=== PATIENT | male | born 1975 | race Caucasian/White ===

== ENCOUNTER 2019-05-21 02:03 | Inpatient (IN) | payer BC ==
[2019-05-21] VITALS (17 sets, daily range): BP systolic 97–142; BP diastolic 56–91
[~2019-05-21] VITALS: Ht 180.3 cm; Wt 100.0 kg
[2019-05-21] MEDS ORDERED: morphine 4 MG/ML inj SYRINge IV ONE (03:40)
[2019-05-21] MEDS ORDERED: ondansetron/PF 4mg/2ml inj IV ONE (03:40)
[2019-05-21] MEDS ORDERED: metroNIDAZOLE-Flagyl 500mg/NS 100 ML IV STA (03:47)
[2019-05-21] MEDS ORDERED: NAPR220T67 PO (03:47)
[2019-05-21] MEDS ORDERED: morphine 2 MG/ML inj. syringe IV PRN (04:25)
[2019-05-21] MEDS ORDERED: potassium Cl 20 mEq SR tablet PO PRN ×2 (04:25)
[2019-05-21] MEDS ORDERED: magnesium 2GM in 50ml NS 50 ML IV PRN (04:25)
[2019-05-21] MEDS ORDERED: magnesium 4gm in 100ml NS 100 ML IV PRN (04:25)
[2019-05-21] MEDS ORDERED: magnesium Cl slow-release 64mg tablet PO PRN (04:25)
[2019-05-21] MEDS ORDERED: ondansetron/PF 4mg/2ml inj IV PRN (04:25)
[2019-05-21] MEDS ORDERED: potassium CL 10mEq/100ml bag 100 ML IV PRN ×2 (04:25)
[2019-05-21 05:17] LABS: PARTIAL THROMBOPLASTIN TIME 30 SECONDS (22-32)
[2019-05-21] MEDS: normal saline 1000ml 1,000 ML IV SCH ×3 (05:18→16:32)
--- NOTE | 2019-05-21 05:32 | NUR ---
Received report from JOSUE [place]. Awaiting patient arrival to the floor.
--- NOTE | 2019-05-21 05:58 | NUR ---
Patient arrived to the floor via wheelchair, placed in room 340A. Patient is awake and alert on room air, in no apparent distress. Call light and items of frequent use within reach, Will continue to monitor.
--- NOTE | 2019-05-21 06:18 | NUR ---
Problems reprioritized. Patient report given, questions answered & plan of care reviewed with JOSUE Mckenna.
--- NOTE | 2019-05-21 06:30 | NUR ---
Patient in room [facility]. I have received report from Kezia SALAS and had the opportunity to ask questions and assume patient care.
[2019-05-21] MEDS: morphine 2 MG/ML inj. syringe IV PRN ×4 (07:53→23:02)
[2019-05-21] MEDS: metroNIDAZOLE-Flagyl 500mg/NS 100 ML IV SCH ×2 (07:54→16:29)
[2019-05-21] MEDS: K and/or MAG REPLACEMENT MC SCH ×2 (08:00→20:00)
[2019-05-21 09:04] LABS: BASOPHILS # (AUTO) 0.1 X10'3 (0-0.2); BASOPHILS % (AUTO) 0.9 % (0-1); EOSINOPHILS # (AUTO) 0.2 X10'3 (0-0.9); EOSINOPHILS % (AUTO) 1.5 % (0-6); HEMATOCRIT 46.5 % (42.0-52.0); HEMOGLOBIN 15.6 g/dl (14.0-17.9); LYMPHOCYTES # (AUTO) 1.4 X10'3 (1.1-4.8); LYMPHOCYTES % (AUTO) 13.1 % (21-51); MEAN CORPUSCULAR HEMOGLOBIN 29.6 PG (27.0-31.0); MEAN CORPUSCULAR HGB CONC 33.4 g/dL (33.0-36.5); MEAN CORPUSCULAR VOLUME 88.7 FL (78-98); MEAN PLATELET VOLUME 8.3 FL (7.4-10.4); MONOCYTES # (AUTO) 1.1 X10'3 (0-0.9); MONOCYTES % (AUTO) 10.3 % (2-12); NEUTROPHILS # (AUTO) 7.8 X10'3 (1.8-7.7); NEUTROPHILS % (AUTO) 74.2 % (42-75); PLATELET COUNT 252 X10'3 (140-440); RED BLOOD COUNT 5.25 X10'6 (4.70-6.10); RED CELL DISTRIBUTION WIDTH 15.1 % (11.5-14.5); WHITE BLOOD COUNT 10.5 X10'3 (4.5-11.0)
[2019-05-21 09:07] LABS: ALBUMIN 3.4 G/DL (3.4-5.0); ALBUMIN/GLOBULIN RATIO 0.8 (1.1-1.5); ANION GAP 5 (8-16); ASPARTATE AMINO TRANSFERASE 37 U/L (10-37); BLOOD UREA NITROGEN 13 MG/DL (7-18); BUN/CREATININE RATIO 15.1 (5.4-32.0); CALCIUM 8.6 MG/DL (8.5-10.1); CHLORIDE 106 MMOL/L (99-107); CREATININE 0.86 MG/DL (0.60-1.10); GLUCOSE 96 MG/DL (70-104); POTASSIUM 4.2 MMOL/L (3.5-5.1); SODIUM 139 MMOL/L (135-145); TOTAL CARBON DIOXIDE 28.1 MMOL/L (24-32); TOTAL PROTEIN 7.5 G/DL (6.4-8.2); eGFR > 90 ML/MIN
[2019-05-21 09:08] LABS: ALANINE AMINOTRANSFERASE 37 U/L (12-78); ALKALINE PHOSPHATASE 99 IU/L (46-116)
[2019-05-21] MEDS: piperacillin/tazo 4.5gm/100ml 100 ML IV SCH ×2 (10:23→20:19)
[2019-05-21] MEDS ORDERED: midazolam 2 mg/2 ml injection ONE (10:27)
[2019-05-21] MEDS ORDERED: fentaNYL/PF 50MCG/1 ML 2ML syringe ONE ×2 (10:27→11:24)
[2019-05-21] MEDS ORDERED: nicotine 21mg patch - 24 hr TD ONE (13:55)
--- NOTE | 2019-05-21 15:45 | NUR ---
Malnutrition consult: Pt seen at bedside reports UBW of 226 lb with 6 lb wt loss in 4 days r/t poor PO intake secondary to pain. Pt now endorsing a good appetite. Pt with no visible fat or muscle wasting, no documented decrease in muscle strength, and no edema. Pt currently does not meet criteria for malnutrition. Pt reports he is lactose intolerant and states he doesn't like brussel sprouts, d/w dietary. RD contact information provided. Will continue to follow. Addendum: 05/21/19 at [address] Amended: Links added.
--- NOTE | 2019-05-21 18:53 | NUR ---
Problems reprioritized. Patient report given, questions answered & plan of care reviewed with SRIDEVI SALAS.
--- NOTE | 2019-05-21 20:27 | NUR ---
Patient in room [facility]. I have received report from JOSUE Mckenna and had the opportunity to ask questions and assume patient care. Addendum: 05/21/19 at 2027 by Shirin Cheung RN Amended: Links added.
--- NOTE | 2019-05-21 21:15 | NUR ---
Problems reprioritized. Patient report given, questions answered & plan of care reviewed with JOSUE Medina. Addendum: 05/21/19 at 2115 by Shirin Cheung RN Amended: Links added.
--- NOTE | 2019-05-21 21:15 | NUR ---
Patient in room [facility]. I have received report from Shirin SALAS and had the opportunity to ask questions and assume patient care.
--- NOTE | 2019-05-21 21:30 | NUR ---
I have reviewed assessment and agree with findings. Patient does have a JEWELS drain to R medial abdomen with minimal serosanguineous drainage at this time.
[2019-05-22] VITALS: BP 104/68
[2019-05-22] MEDS: metroNIDAZOLE-Flagyl 500mg/NS 100 ML IV SCH ×2 (00:50→07:44)
[2019-05-22] MEDS: normal saline 1000ml 1,000 ML IV SCH ×2 (03:01→15:33)
[2019-05-22 05:11] LABS: BASOPHILS # (AUTO) 0.1 X10'3 (0-0.2); EOSINOPHILS # (AUTO) 0.3 X10'3 (0-0.9); EOSINOPHILS % (AUTO) 3.5 % (0-6); HEMATOCRIT 40.8 % (42.0-52.0); HEMOGLOBIN 13.8 g/dl (14.0-17.9); LYMPHOCYTES # (AUTO) 1.8 X10'3 (1.1-4.8); LYMPHOCYTES % (AUTO) 19.6 % (21-51); MEAN CORPUSCULAR HEMOGLOBIN 29.8 PG (27.0-31.0); MEAN CORPUSCULAR HGB CONC 33.7 g/dL (33.0-36.5); MEAN CORPUSCULAR VOLUME 88.2 FL (78-98); MEAN PLATELET VOLUME 8.5 FL (7.4-10.4); MONOCYTES # (AUTO) 0.8 X10'3 (0-0.9); MONOCYTES % (AUTO) 8.9 % (2-12); NEUTROPHILS # (AUTO) 6.1 X10'3 (1.8-7.7); PLATELET COUNT 230 X10'3 (140-440); RED BLOOD COUNT 4.62 X10'6 (4.70-6.10); WHITE BLOOD COUNT 9.2 X10'3 (4.5-11.0)
[2019-05-22 05:23] LABS: ALANINE AMINOTRANSFERASE 42 U/L (12-78); ALBUMIN 2.8 G/DL (3.4-5.0); ALBUMIN/GLOBULIN RATIO 0.8 (1.1-1.5); ALKALINE PHOSPHATASE 110 IU/L (46-116); ANION GAP 4 (8-16); ASPARTATE AMINO TRANSFERASE 40 U/L (10-37); BILIRUBIN,TOTAL 0.5 MG/DL (0.1-1.0); BLOOD UREA NITROGEN 10 MG/DL (7-18); BUN/CREATININE RATIO 12.5 (5.4-32.0); CALCIUM 8.3 MG/DL (8.5-10.1); CHLORIDE 107 MMOL/L (99-107); GLUCOSE 98 MG/DL (70-104); MAGNESIUM 1.9 MG/DL (1.5-2.4); POTASSIUM 4.1 MMOL/L (3.5-5.1); SODIUM 140 MMOL/L (135-145); TOTAL CARBON DIOXIDE 28.7 MMOL/L (24-32); TOTAL PROTEIN 6.3 G/DL (6.4-8.2); eGFR > 90 ML/MIN
--- NOTE | 2019-05-22 05:30 | NUR ---
Problems reprioritized. Patient report given, questions answered & plan of care reviewed with Randa SALAS.
--- NOTE | 2019-05-22 06:30 | NUR ---
Patient in room [facility]. I have received report from JOSUE Medina and had the opportunity to ask questions and assume patient care.
[2019-05-22 06:57] VITALS: BP 111/69
[2019-05-22] MEDS: K and/or MAG REPLACEMENT MC SCH ×2 (07:18→20:00)
[2019-05-22] MEDS: piperacillin/tazo 4.5gm/100ml 100 ML IV SCH ×2 (07:44→19:41)
[2019-05-22] MEDS: morphine 2 MG/ML inj. syringe IV PRN ×3 (07:45→18:25)
[2019-05-22] MEDS: nicotine 21mg patch - 24 hr TD SCH (08:00)
--- NOTE | 2019-05-22 09:28 | NUR ---
Per Dr Reji green to flush patients JEWELS drain placed by IR with 10cc saline flush.
[2019-05-22 11:00] VITALS: BP 110/68
--- NOTE | 2019-05-22 16:55 | NUR ---
Patient JEWELS drain was flushed with 10 mL NS into the patient and then 8 mL into the tube for a total of 18 mL of NS to flush. Total output was 35 mL of fluid. That subtracted by what was flushed gives a total of 17 mL of actual output.
--- NOTE | 2019-05-22 18:26 | NUR ---
Problems reprioritized. Patient report given, questions answered & plan of care reviewed with Jessica Lopez RN.
--- NOTE | 2019-05-22 18:30 | NUR ---
Patient in room [facility]. I have received report from CASSIE SALAS and had the opportunity to ask questions and assume patient care.
[2019-05-22 20:00] VITALS: BP 136/85
[2019-05-22] MEDS: lactobacillus rhamnosus 10,000 MMU CELLS/CAPSULE PO SCH (20:09)
[2019-05-22] MEDS: HYDROcodone/acetaminophen 10/325mg tab PO PRN (20:09)
[2019-05-23] VITALS: BP 113/76
[2019-05-23] MEDS: normal saline 1000ml 1,000 ML IV SCH (02:09)
[2019-05-23 05:34] LABS: ALANINE AMINOTRANSFERASE 38 U/L (12-78); ALBUMIN 2.9 G/DL (3.4-5.0); ALBUMIN/GLOBULIN RATIO 0.8 (1.1-1.5); ALKALINE PHOSPHATASE 99 IU/L (46-116); ANION GAP 5 (8-16); ASPARTATE AMINO TRANSFERASE 29 U/L (10-37); BILIRUBIN,TOTAL 0.4 MG/DL (0.1-1.0); BLOOD UREA NITROGEN 8 MG/DL (7-18); BUN/CREATININE RATIO 10.3 (5.4-32.0); CALCIUM 8.2 MG/DL (8.5-10.1); CHLORIDE 108 MMOL/L (99-107); CREATININE 0.78 MG/DL (0.60-1.10); GLUCOSE 109 MG/DL (70-104); MAGNESIUM 1.9 MG/DL (1.5-2.4); POTASSIUM 3.9 MMOL/L (3.5-5.1); SODIUM 138 MMOL/L (135-145); TOTAL CARBON DIOXIDE 25.1 MMOL/L (24-32); TOTAL PROTEIN 6.5 G/DL (6.4-8.2); eGFR > 90 ML/MIN
[2019-05-23 05:43] LABS: BASOPHILS # (AUTO) 0.1 X10'3 (0-0.2); BASOPHILS % (AUTO) 0.9 % (0-1); EOSINOPHILS # (AUTO) 0.3 X10'3 (0-0.9); EOSINOPHILS % (AUTO) 2.5 % (0-6); HEMATOCRIT 41.3 % (42.0-52.0); LYMPHOCYTES # (AUTO) 1.3 X10'3 (1.1-4.8); LYMPHOCYTES % (AUTO) 12.7 % (21-51); MEAN CORPUSCULAR HGB CONC 33.9 g/dL (33.0-36.5); MEAN CORPUSCULAR VOLUME 88.5 FL (78-98); MEAN PLATELET VOLUME 8.5 FL (7.4-10.4); MONOCYTES # (AUTO) 0.8 X10'3 (0-0.9); MONOCYTES % (AUTO) 7.9 % (2-12); NEUTROPHILS # (AUTO) 8.1 X10'3 (1.8-7.7); PLATELET COUNT 235 X10'3 (140-440); RED BLOOD COUNT 4.67 X10'6 (4.70-6.10); RED CELL DISTRIBUTION WIDTH 14.8 % (11.5-14.5); WHITE BLOOD COUNT 10.6 X10'3 (4.5-11.0)
--- NOTE | 2019-05-23 06:30 | NUR ---
Problems reprioritized. Patient report given, questions answered & plan of care reviewed with MICHI SALAS.
[2019-05-23] MEDS: nicotine 21mg patch - 24 hr TD SCH (08:00)
[2019-05-23] MEDS: K and/or MAG REPLACEMENT MC SCH ×2 (08:00→19:21)
[2019-05-23] MEDS: piperacillin/tazo 4.5gm/100ml 100 ML IV SCH ×2 (09:26→19:27)
[2019-05-23] MEDS: lactobacillus rhamnosus 10,000 MMU CELLS/CAPSULE PO SCH ×2 (09:27→19:27)
[2019-05-23] MEDS: HYDROcodone/acetaminophen 10/325mg tab PO PRN ×2 (09:46→19:26)
[2019-05-23 11:35] VITALS: BP 135/84
--- NOTE | 2019-05-23 11:36 | NUR ---
Spoke with JYOTI BAEZ. This flush can be done by nursing but make sure to SLOWLY flush a small amount retrograde and withdraw/aspirate any fluid inserted. Flush most of the fluid TOWARD drain bulb. Will pass on in report to frantz SALAS. Addendum: 05/23/19 at 1142 by Rosey Alfaro RN Amended: Links added.
[2019-05-23 18:00] VITALS: BP 129/76
--- NOTE | 2019-05-23 18:56 | NUR ---
GAVE REPORT TO PRUDENCE JOSUE.
--- NOTE | 2019-05-23 19:04 | NUR ---
Patient in room [facility]. I have received report from MICHI SALAS and had the opportunity to ask questions and assume patient care.
[2019-05-23 23:58] VITALS: BP 118/69
[2019-05-24 05:12] LABS: BASOPHILS # (AUTO) 0.1 X10'3 (0-0.2); BASOPHILS % (AUTO) 0.6 % (0-1); EOSINOPHILS # (AUTO) 0.3 X10'3 (0-0.9); EOSINOPHILS % (AUTO) 3.6 % (0-6); HEMATOCRIT 41.6 % (42.0-52.0); HEMOGLOBIN 14.1 g/dl (14.0-17.9); LYMPHOCYTES # (AUTO) 2.2 X10'3 (1.1-4.8); LYMPHOCYTES % (AUTO) 24.6 % (21-51); MEAN CORPUSCULAR HEMOGLOBIN 29.6 PG (27.0-31.0); MEAN CORPUSCULAR HGB CONC 33.9 g/dL (33.0-36.5); MEAN CORPUSCULAR VOLUME 87.3 FL (78-98); MEAN PLATELET VOLUME 8.1 FL (7.4-10.4); MONOCYTES # (AUTO) 0.9 X10'3 (0-0.9); MONOCYTES % (AUTO) 9.7 % (2-12); NEUTROPHILS # (AUTO) 5.5 X10'3 (1.8-7.7); NEUTROPHILS % (AUTO) 61.5 % (42-75); PLATELET COUNT 272 X10'3 (140-440); RED BLOOD COUNT 4.77 X10'6 (4.70-6.10); RED CELL DISTRIBUTION WIDTH 14.6 % (11.5-14.5)
[2019-05-24 05:29] LABS: ALANINE AMINOTRANSFERASE 31 U/L (12-78); ALBUMIN 2.9 G/DL (3.4-5.0); ALBUMIN/GLOBULIN RATIO 0.8 (1.1-1.5); ALKALINE PHOSPHATASE 79 IU/L (46-116); ANION GAP 3 (8-16); ASPARTATE AMINO TRANSFERASE 14 U/L (10-37); BILIRUBIN,TOTAL 0.3 MG/DL (0.1-1.0); BLOOD UREA NITROGEN 8 MG/DL (7-18); BUN/CREATININE RATIO 8.6 (5.4-32.0); CALCIUM 8.3 MG/DL (8.5-10.1); CHLORIDE 107 MMOL/L (99-107); CREATININE 0.93 MG/DL (0.60-1.10); GLUCOSE 92 MG/DL (70-104); POTASSIUM 3.8 MMOL/L (3.5-5.1); SODIUM 140 MMOL/L (135-145); TOTAL CARBON DIOXIDE 30.4 MMOL/L (24-32); TOTAL PROTEIN 6.5 G/DL (6.4-8.2); eGFR 88 ML/MIN
--- NOTE | 2019-05-24 06:18 | NUR ---
Problems reprioritized. Patient report given, questions answered & plan of care reviewed with SHARMAINE SALAS.
--- NOTE | 2019-05-24 06:18 | NUR ---
Patient in room [facility]. I have received report from JOSUE Rawls and had the opportunity to ask questions and assume patient care.
[2019-05-24 07:14] VITALS: BP 110/66
[2019-05-24] MEDS: K and/or MAG REPLACEMENT MC SCH (08:00)
[2019-05-24] MEDS: piperacillin/tazo 4.5gm/100ml 100 ML IV SCH (08:37)
[2019-05-24] MEDS: lactobacillus rhamnosus 10,000 MMU CELLS/CAPSULE PO SCH (08:37)
[2019-05-24] MEDS: HYDROcodone/acetaminophen 10/325mg tab PO PRN (08:48)
[2019-05-24 11:00] VITALS: BP 129/70
[2019-05-24] MEDS ORDERED: METR-159 PO (11:11)
[2019-05-24] MEDS ORDERED: LEVO500T2 PO (11:11)
== END 2019-05-24 14:18 | disposition home or self-care (01) | DRG 392 ==
LOC: ER 02:05 → SUR 3N 04:24
PROVIDERS: ADMIT Internal Medicine; ATTEND Family Medicine
PROC: 0W9G30Z Drainage of Peritoneal Cavity with Drainage Device, Percutaneous Approach (ICD-10-PCS; principal; 2019-05-21)
DX: K57.80 Diverticulitis of intestine, part unspecified, with perforation and abscess without bleeding (principal); K52.9 Noninfective gastroenteritis and colitis, unspecified; F17.200 Nicotine dependence, unspecified, uncomplicated; K59.00 Constipation, unspecified
CPT/HCPCS: 36415; 49406; 80053; 83735; 85025; 85610; 85730; 87070; 87077; 87081; 87102; 87185; 96365; 96375; 99152; 99153; 99285; G0378; J2250; J2270; J2405; J2543; J3010; J3490; J7030

== ENCOUNTER 2019-07-03 09:30 | Inpatient (IN) | payer OTHER, BC ==
[2019-07-01 16:04] LABS: BASOPHILS # (AUTO) 0.1 X10'3 (0-0.2); BASOPHILS % (AUTO) 1.5 % (0-1); EOSINOPHILS # (AUTO) 0.3 X10'3 (0-0.9); EOSINOPHILS % (AUTO) 4.1 % (0-6); LYMPHOCYTES # (AUTO) 2.5 X10'3 (1.1-4.8); LYMPHOCYTES % (AUTO) 33.2 % (21-51); MEAN CORPUSCULAR HEMOGLOBIN 29.4 PG (27.0-31.0); MEAN CORPUSCULAR HGB CONC 33.8 g/dL (33.0-36.5); MEAN PLATELET VOLUME 8.5 FL (7.4-10.4); MONOCYTES # (AUTO) 0.7 X10'3 (0-0.9); MONOCYTES % (AUTO) 8.8 % (2-12); NEUTROPHILS # (AUTO) 3.9 X10'3 (1.8-7.7); NEUTROPHILS % (AUTO) 52.4 % (42-75); PRE OP HEMATOCRIT 47.1 % (42.0-52.0); PRE OP HEMOGLOBIN 15.9 g/dL (14.0-17.9); PRE OP PLATELET COUNT 228 X10'3 (140-440); RED BLOOD COUNT 5.42 X10'6 (4.70-6.10); RED CELL DISTRIBUTION WIDTH 15.8 % (11.5-14.5)
[2019-07-01 16:07] LABS: CLARITY,URINE CLEAR (Clear); COLOR,URINE YELLOW (Yellow); GLUCOSE, URINE NEGATIVE (Neg); KETONES,URINE NEGATIVE (Neg); LEUKOCYTE ESTERASE ,URINE NEGATIVE (Neg); NITRITES, URINE NEGATIVE (Neg); OCCULT BLOOD,URINE NEGATIVE (Neg); PH,URINE 6.5 (4.8-8.0); PROTEIN,URINE NEGATIVE (Neg); UROBILINOGEN,URINE 0.2 E.U/dL (0.2-1.0)
[2019-07-01 16:09] LABS: UA COLLECTION TYPE CLN CATCH MIDSTREAM
[2019-07-01 16:17] LABS: ALBUMIN/GLOBULIN RATIO 1.1 (1.1-1.5); ALKALINE PHOSPHATASE 72 IU/L (46-116); BLOOD UREA NITROGEN 12 MG/DL (7-18); BUN/CREATININE RATIO 14.3 (5.4-32.0); CALCIUM 8.7 MG/DL (8.5-10.1); CHLORIDE 107 MMOL/L (99-107); CREATININE 0.84 MG/DL (0.60-1.10); PRE OP ALT 70 U/L (30-65); PRE OP ANION GAP 7 (8-16); PRE OP AST 29 U/L (10-37); PRE OP BILIRUB, TOTAL 0.6 MG/DL (0.0-1.0); PRE OP GLUCOSE 106 MG/DL (70-104); PRE OP POTASSIUM 3.9 MMOL/L (3.4-5.1); PRE OP SODIUM 141 MMOL/L (135-145); TOTAL CARBON DIOXIDE 27.2 MMOL/L (24-32); TOTAL PROTEIN 7.7 G/DL (6.4-8.2); eGFR > 90 ML/MIN
[2019-07-03] VITALS (14 sets, daily range): BP systolic 100–158; BP diastolic 52–103
[~2019-07-03] VITALS: Ht 180.3 cm; Wt 99.8 kg
[~2019-07-03 09:30] MED LIST: NAPR220T67 PO; ceFOXitin 2 GM ADDvantage bag 100 ML IV ONE; famotidine 20mg tablet PO ONE; ringers solution, lacted 1,000 ML IV SCH
[2019-07-03] MEDS ORDERED: HYDROcodone/acetaminophen 10/325mg tab PO ONE (14:20)
[2019-07-03] MEDS ORDERED: BUPIVAcaine/PF 2.5 mg/ml (0.25%) 30ml vial ONE ×2 (14:56→14:58)
[2019-07-03] MEDS ORDERED: ceFAZolin 1000mg inj ONE ×3 (14:56→16:05)
[2019-07-03] MEDS ORDERED: iohexol 300 MG/1 ML 50ml polymer ONE (15:01)
[2019-07-03] MEDS ORDERED: fentaNYL /PF 50mcg/ml 5ml ampule ONE (15:08)
[2019-07-03] MEDS ORDERED: midazolam 2 mg/2 ml injection ONE (15:08)
[2019-07-03] MEDS ORDERED: sevoflurane 250ml liquid IH ONE (15:10)
[2019-07-03] MEDS ORDERED: dexamethasone sod phosphate 4mg/ml inj. ONE (15:52)
[2019-07-03] MEDS ORDERED: neostigmine methylsulfate 1 MG/ML 10ml vial ONE (15:52)
[2019-07-03] MEDS ORDERED: glycopyrrolate 0.2mg/ml inj ONE (15:52)
[2019-07-03] MEDS ORDERED: rocuronium 10mg/ml inj IV ONE (15:52)
[2019-07-03] MEDS ORDERED: propofol inj 20 ML IV ONE (15:52)
[2019-07-03] MEDS ORDERED: LIDOcaine 2% (20mg/ml) 5ml vial ONE (15:52)
[2019-07-03] MEDS ORDERED: ondansetron/PF 4mg/2ml inj ONE (15:52)
[2019-07-03] MEDS ORDERED: ringers solution, lacted 1,000 ML IV SCH (16:03)
[2019-07-03] MEDS ORDERED: ondansetron/PF 4mg/2ml inj IV PRN ×2 (16:05→17:35)
[2019-07-03] MEDS ORDERED: HYDROmorphone inj. 0.5 MG/0.5 ML DISP.SYRIN IV PRN ×2 (16:05)
[2019-07-03] MEDS ORDERED: meperidine/PF 25mg/ml syringe IV PRN ×2 (16:05)
[2019-07-03] MEDS ORDERED: meperidine/PF 50mg/ml syringe ONE (17:10)
[2019-07-03] MEDS ORDERED: fentaNYL/PF 50MCG/1 ML 2ML syringe ONE (17:26)
[2019-07-03] MEDS ORDERED: naloxone 0.4 mg/ml inj IV PRN (17:35)
[2019-07-03] MEDS ORDERED: CADD PCA waste documentation MC PRN (17:35)
--- NOTE | 2019-07-03 17:35 | NUR ---
Received from OR via BED , accompanied by Anesthesiologist DR CAMPUZANO and report given by Anesthesiolgist. PATIENT WAKING UP, DENIES PAIN, V/S WNL, NEUROVASCULAR CHECKS INTACT, 20G PIV LUE, SCD ON, BANDAIDS TO LAP SIGHTS AND PROVENA DRESSING TO ABDOMEN CDI. F/C DRAINING PINK CLEAR URINE AFTER STENT REMOVAL POST OP
[2019-07-03] MEDS: HYDROmorphone/NS 1 mg/ml CADD 50 ML IV SCH ×4 (18:03→23:00)
--- NOTE | 2019-07-03 18:20 | NUR ---
Patient in room [facility]. I have received report from JOSUE Mckeon and had the opportunity to ask questions and will assume patient care when pt comes up from OR
--- NOTE | 2019-07-03 18:20 | NUR ---
Patient brought up by OR on gurney. patient is alert and oriented, VSS
--- NOTE | 2019-07-03 18:25 | NUR ---
PATIENT [id number], DENIES PAIN, V/S WNL, NEUROVASCULAR CHECKS INTACT, 20G PIV LUE, SCD ON, BANDAIDS TO LAP SIGHTS AND PROVENA DRESSING TO ABDOMEN CDI. 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 PATIENT TAKEN TO 345B WITH ALL BELONGINGS AND HOOKED UP TO MONITORS IN ROOM AND REPORT GIVEN TO RN WHO HAS TAKEN OVER PATIENT CARE.
[2019-07-03] MEDS ORDERED: HYDROmorphone/NS 1 mg/ml CADD 50 ML IV SCH (19:00)
[2019-07-03] MEDS: naproxen sodium 220mg tablet PO SCH (20:11)
[2019-07-03] MEDS: potassium CL 20mEq in D5-1/2NS 1,000 ML IV SCH (20:12)
[2019-07-04] VITALS: BP 130/76
[2019-07-04] MEDS: piperacillin/tazo 3.375gm/50ml 50 ML IV SCH ×4 (00:05→23:49)
[2019-07-04] MEDS: HYDROmorphone/NS 1 mg/ml CADD 50 ML IV SCH ×12 (00:31→23:00)
[2019-07-04] MEDS: potassium CL 20mEq in D5-1/2NS 1,000 ML IV SCH ×3 (03:23→14:33)
[2019-07-04 04:30] VITALS: BP 120/85
--- NOTE | 2019-07-04 06:11 | NUR ---
Problems reprioritized. Patient report given, questions answered & plan of care reviewed with JOSUE Currie.
[2019-07-04 07:21] VITALS: BP 129/81
[2019-07-04] MEDS ORDERED: mag hydrox/Alum hydrox/simeth 30ml oral suspension PO PRN (07:55)
[2019-07-04] MEDS: famotidine 20mg tablet PO SCH (08:23)
[2019-07-04] MEDS: naproxen sodium 220mg tablet PO SCH ×2 (09:39→19:36)
[2019-07-04 11:59] VITALS: BP 125/83
--- NOTE | 2019-07-04 12:22 | NUR ---
Pt. voided once 100ml, second time 200ml - post residual bladder scan completed. 45ml shown in bladder.
--- NOTE | 2019-07-04 12:23 | NUR ---
pt continues to c/o heartburn. Refusing and pharmaceutical remedy at this time and refuses to ambulate stating "I'm going to take a nap at this time. "
[2019-07-04 18:00] VITALS: BP 128/96
--- NOTE | 2019-07-04 18:44 | NUR ---
Gave report to Prudence JOSUE.
[2019-07-04] MEDS ORDERED: temazepam 15mg capsule PO PRN (20:55)
[2019-07-05] MEDS: HYDROmorphone/NS 1 mg/ml CADD 50 ML IV SCH ×8 (01:00→15:00)
[2019-07-05 06:30] VITALS: BP 107/67
--- NOTE | 2019-07-05 06:35 | NUR ---
Patient in room [facility]. I have received report from JOSUE Rawls and had the opportunity to ask questions and assume patient care.
[2019-07-05] MEDS ORDERED: enoxaparin 30mg/0.3ml syringe SUBCUT SCH (08:00)
[2019-07-05 08:42] LABS: BASOPHILS # (AUTO) 0.1 X10'3 (0-0.2); BASOPHILS % (AUTO) 0.8 % (0-1); EOSINOPHILS # (AUTO) 0.1 X10'3 (0-0.9); EOSINOPHILS % (AUTO) 0.6 % (0-6); HEMATOCRIT 39.1 % (42.0-52.0); LYMPHOCYTES # (AUTO) 1.9 X10'3 (1.1-4.8); LYMPHOCYTES % (AUTO) 17.3 % (21-51); MEAN CORPUSCULAR HEMOGLOBIN 28.9 PG (27.0-31.0); MEAN CORPUSCULAR HGB CONC 33.1 g/dL (33.0-36.5); MEAN CORPUSCULAR VOLUME 87.2 FL (78-98); MEAN PLATELET VOLUME 8.7 FL (7.4-10.4); MONOCYTES # (AUTO) 0.8 X10'3 (0-0.9); MONOCYTES % (AUTO) 7.5 % (2-12); NEUTROPHILS # (AUTO) 8.3 X10'3 (1.8-7.7); NEUTROPHILS % (AUTO) 73.8 % (42-75); PLATELET COUNT 198 X10'3 (140-440); RED BLOOD COUNT 4.49 X10'6 (4.70-6.10); RED CELL DISTRIBUTION WIDTH 15.6 % (11.5-14.5); WHITE BLOOD COUNT 11.3 X10'3 (4.5-11.0)
[2019-07-05 09:00] LABS: ALANINE AMINOTRANSFERASE 40 U/L (12-78); ALBUMIN 3.4 G/DL (3.4-5.0); ALKALINE PHOSPHATASE 58 IU/L (46-116); ANION GAP 8 (8-16); ASPARTATE AMINO TRANSFERASE 30 U/L (10-37); BLOOD UREA NITROGEN 10 MG/DL (7-18); CALCIUM 8.5 MG/DL (8.5-10.1); CHLORIDE 105 MMOL/L (99-107); CREATININE 0.77 MG/DL (0.60-1.10); GLUCOSE 112 MG/DL (70-104); MAGNESIUM 1.8 MG/DL (1.5-2.4); POTASSIUM 3.7 MMOL/L (3.5-5.1); SODIUM 140 MMOL/L (135-145); TOTAL CARBON DIOXIDE 27.5 MMOL/L (24-32); TOTAL PROTEIN 6.9 G/DL (6.4-8.2); eGFR > 90 ML/MIN
[2019-07-05] MEDS: piperacillin/tazo 3.375gm/50ml 50 ML IV SCH (09:03)
[2019-07-05] MEDS: famotidine 20mg tablet PO SCH (09:03)
[2019-07-05] MEDS: naproxen sodium 220mg tablet PO SCH (09:04)
[2019-07-05 11:00] VITALS: BP 126/58
--- NOTE | 2019-07-05 15:10 | NUR ---
DC inst provided to pt & pt's . IV DC'd, tip intact. All belongings sent w/pt. Pt ambulated to front lobby.
== END 2019-07-05 15:10 | disposition home or self-care (01) | DRG 331 ==
LOC: PAS IN 11:44 → EDSTATUS 15:00 → SUR 3N 18:39
PROVIDERS: ADMIT Surgery; ATTEND Surgery
PROC: 0T788DZ Dilation of Bilateral Ureters with Intraluminal Device, Via Natural or Artificial Opening Endoscopic (ICD-10-PCS; 2019-07-03)
PROC: BT141ZZ Fluoroscopy of Kidneys, Ureters and Bladder using Low Osmolar Contrast (ICD-10-PCS; 2019-07-03)
PROC: 0DBN4ZZ Excision of Sigmoid Colon, Percutaneous Endoscopic Approach (ICD-10-PCS; principal; 2019-07-03 15:10)
PROC: 0DNW4ZZ Release Peritoneum, Percutaneous Endoscopic Approach (ICD-10-PCS; 2019-07-03 15:10)
DX: K57.20 Diverticulitis of large intestine with perforation and abscess without bleeding (principal); E66.9 Obesity, unspecified; F17.200 Nicotine dependence, unspecified, uncomplicated; K66.0 Peritoneal adhesions (postprocedural) (postinfection); N40.0 Benign prostatic hyperplasia without lower urinary tract symptoms; Q90.9 Down syndrome, unspecified; Z68.30 Body mass index [BMI] 30.0-30.9, adult
CPT/HCPCS: Z7506; Z7508; 36415; 74420; 80053; 81003; 82948; 83735; 85025; 86885; 86900; 86901; 86920; 87081; A4215; A4355; A4618; A7000; C1758; C1769; G0378; J0690; J0694; J1100; J1170; J1650; J2001; J2175; J2250; J2405; J2543; J2704; J2710; J3010; J3480; J3490; J7120; Q9967